=== PATIENT | female | born 1990 | race Caucasian/White ===

== ENCOUNTER 2021-04-16 05:36 | Inpatient (IN) ==
[2021-04-16] MEDS ORDERED: Ondansetron 4 MG/2 ML VIAL IVP PRN ×3 (06:19→17:55)
[2021-04-16] MEDS ORDERED: *HR* Nalbuphine 10 MG/ML AMPUL IV PRN (06:19)
[2021-04-16] MEDS ORDERED: Metoclopramide 10 MG/2 ML VIAL IVP PRN ×2 (06:19→17:55)
[2021-04-16] MEDS ORDERED: Famotidine 20 MG/2 ML VIAL IVP PRN (06:19)
[2021-04-16] MEDS ORDERED: Naloxone 0.4 MG/ML INJ IVP PRN ×2 (06:19→07:50)
[2021-04-16] MEDS ORDERED: Oxytocin 20 units/ LR 1000 mL 20 UNIT/1,000 ML BAG IVC ONE (06:24)
[2021-04-16] MEDS ORDERED: Ringers Solution, Lactated 1,000 ML ONE (06:30)
[2021-04-16] MEDS ORDERED: Ringers Solution, Lactated 1,000 ML IVC SCH (06:30)
[2021-04-16] MEDS ORDERED: Oxytocin 20 units/ LR 1000 mL 20 UNIT/1,000 ML BAG IVC SCH ×2 (06:30→17:55)
[2021-04-16] MEDS ORDERED: EPHEDrine 50 MG/ML VIAL IVP PRN (07:50)
[2021-04-16] MEDS ORDERED: *HR* FentaNYL (PF) 100 MCG/2 ML VIAL EP ONE (07:50)
[2021-04-16] MEDS ORDERED: Ropivacaine/PF 0.2% 20 ML VIAL EP ONE (07:50)
[2021-04-16] MEDS ORDERED: Epidural Premix (fent/bupiv) 110 ML EP SCH (08:00)
[2021-04-16 09:40] LABS: Amphetamine Screen,Urine Negative ng/mL (Cutoff=1000); Barbiturate Screen,Urine Negative ng/mL (Cutoff=200); Benzodiazepines Screen,Urine Negative ng/mL (Cutoff=200); Cannabinoid Screen,Urine Negative ng/mL (Cutoff = 50); Cocaine Screen,Urine Negative ng/mL (Cutoff= 300); Opiate Screen,Urine Negative ng/mL (Cutoff=300); Phencyclidine Screen,Urine Negative ng/mL (Cutoff=25)
[2021-04-16 09:45] LABS: Basophils % 0.3 %; Eosinophils # 0.1 K/mcL (0.0-0.6); Eosinophils % 0.6 %; Hematocrit 34.7 % (35.3-44.9); Hemoglobin 11.4 g/dL (11.5-15.4); Immature Granulocytes % 0.6 % (0-4); Lymphocytes # 1.6 K/mcL (0.6-4.6); Lymphocytes % 16.8 %; Mean Corpuscular HGB Conc 32.9 g/dL (31.6-35.5); Mean Corpuscular Hemoglobin 28.6 pg (28.0-33.3); Mean Corpuscular Volume 87.2 fL (83.0-100.0); Monocytes # 0.5 K/mcL (0.0-1.3); Monocytes % 4.7 %; Neutrophils # 7.4 K/mcL (1.6-8.9); Platelet Count 125 K/mcL (140-400); Red Blood Count 3.98 M/mcL (3.82-4.97); Red Cell Distribution Width 13.9 % (11.5-14.5); White Blood Count 9.6 K/mcL (4.3-11.1)
[2021-04-16] MEDS ORDERED: CeFAZolin 2,000MG/50ML DUPLEX 2,000 MG/50 ML BAG IVPB ONE (13:16)
[2021-04-16] MEDS ORDERED: *HR* Morphine Sulfate/PF 10 MG/10 ML AMPUL ONE (13:37)
[2021-04-16] MEDS ORDERED: Ondansetron 4 MG/2 ML VIAL ONE (14:02)
[2021-04-16] MEDS ORDERED: Acetaminophen IV 1,000 MG/100 ML BAG IVPB ONE (14:04)
[2021-04-16] MEDS ORDERED: Ketorolac 30 MG/ML VIAL ONE (15:01)
[2021-04-16] MEDS ORDERED: Rho Immune Globulin 1,500 UNIT SYRINGE IM ONE (17:55)
[2021-04-16] MEDS ORDERED: Simethicone 80 MG TAB.CHEW PO PRN (17:55)
[2021-04-16] MEDS ORDERED: *HR* OxyCODONE Immed Rel 5 MG TABLET PO PRN (17:55)
[2021-04-16] MEDS ORDERED: *HR* Promethazine 25 MG/ML VIAL IVPB ONE (21:13)
[2021-04-16] MEDS ORDERED: Ringers Solution, Lactated 500 ML IVC ONE (21:13)
[2021-04-16] MEDS: Acetaminophen 325 MG TABLET PO SCH (23:37)
[2021-04-16] MEDS: Ibuprofen 600 MG TABLET PO SCH (23:38)
[2021-04-17 04:07] LABS: Basophils % 0.2 %; Eosinophils % 0.1 %; Hematocrit 30.6 % (35.3-44.9); Immature Granulocytes % 0.7 % (0-4); Lymphocytes # 1.9 K/mcL (0.6-4.6); Lymphocytes % 15.5 %; Mean Corpuscular HGB Conc 32.7 g/dL (31.6-35.5); Mean Corpuscular Hemoglobin 28.3 pg (28.0-33.3); Mean Corpuscular Volume 86.7 fL (83.0-100.0); Mean Platelet Volume 11.8 fL (9.4-12.4); Monocytes # 0.7 K/mcL (0.0-1.3); Monocytes % 5.8 %; Neutrophils # 9.5 K/mcL (1.6-8.9); Platelet Count 133 K/mcL (140-400); Red Blood Count 3.53 M/mcL (3.82-4.97); Red Cell Distribution Width 13.5 % (11.5-14.5); Segmented Neutrophils % 77.7 %; White Blood Count 12.2 K/mcL (4.3-11.1)
[2021-04-17] MEDS: Acetaminophen 325 MG TABLET PO SCH ×4 (06:01→23:51)
[2021-04-17] MEDS: Ibuprofen 600 MG TABLET PO SCH ×4 (06:02→23:50)
[2021-04-17] MEDS: Prenatal Vit/FA 1 EACH TABLET PO SCH (07:40)
[2021-04-17] MEDS ORDERED: Rho Immune Globulin 1,500 UNIT SYRINGE IM ONE (10:16)
[2021-04-17 21:01] VITALS: O2SAT 98
[2021-04-18] MEDS: Ibuprofen 600 MG TABLET PO SCH ×2 (05:39→12:21)
[2021-04-18] MEDS: Acetaminophen 325 MG TABLET PO SCH ×2 (05:39→12:22)
[2021-04-18 07:42] VITALS: BP 108/68; PULSE 60; TEMP 98.3
[2021-04-18] MEDS: Prenatal Vit/FA 1 EACH TABLET PO SCH (08:13)
== END 2021-04-18 12:50 | disposition home or self-care (01) | DRG 788 ==
LOC: 1NENULAB 05:36 → EDSTATUS 07:30 → 1NENUOBS 17:54
PROVIDERS: ADMIT Student in an Organized Health Care Education/Training Program; ATTEND Student in an Organized Health Care Education/Training Program